=== PATIENT | male | born 2000 ===

== ENCOUNTER → 2021-05-10 | Outpatient (CLI) | payer SELFPAY ==
[2021-05-12 02:07] LABS: CHLAMYDIA TRACHOMATIS, NAA Negative (Negative)
== END | disposition home or self-care (01) ==
LOC: LAB SHORT 15:27
PROVIDERS: Physician Assistant
DX: Z20.9 Contact with and (suspected) exposure to unspecified communicable disease (principal); Z72.51 High risk heterosexual behavior
CPT/HCPCS: 87070; 87205; 87491; 87591